=== PATIENT | female | born 1975 | race Two or more races ===

== ENCOUNTER 2025-08-17 12:09 | Emergency (ER) | payer MEDICAID, SELFPAY ==
[2025-08-17 12:27] VITALS: BP 138/83; PULSE 81; RESP 16; TEMP 36.8; O2SAT 98
--- NOTE | 2025-08-17 12:49 | PC.NURSE ---
PT SAID SHE HAD TO BE TO WORK AT 15:00. PT LEFT AND SAID SHE WILL COME BACK IN THE MORNING.
== END 2025-08-17 12:51 | disposition left against medical advice (07) ==
PROVIDERS: Emergency Provider Emergency Medicine
DX: Z53.21 Procedure and treatment not carried out due to patient leaving prior to being seen by health care provider (principal)
CPT/HCPCS: 99281